=== PATIENT | female | born 1980 | race Caucasian/White ===

== ENCOUNTER 2017-09-10 10:47 | Emergency (ER) | payer OTHER ==
[2017-09-10] MEDS: NICARDipine HCL 30 MG CAPSULE PO (12:06)
[2017-09-10] MEDS: LORAZEPAM 1 MG TAB PO (12:06)
[2017-09-10] MEDS: IBUPROFEN 800 MG TAB PO (12:06)
== END 2017-09-10 13:25 | disposition home or self-care (01) ==
LOC: E/R 10:47
DX: F41.0 Panic disorder [episodic paroxysmal anxiety] (principal); Z79.82 Long term (current) use of aspirin
CPT/HCPCS: 71045; 93005; 99284-25

== ENCOUNTER 2018-03-29 09:38 | Emergency (ER) | payer OTHER ==
[2018-03-29] MEDS: SOD CHLORIDE 0.9% 500 ML IV (12:42)
[2018-03-29 12:52] LABS: ADD MAN DIFF? NO
[2018-03-29 13:03] LABS: WHITE BLOOD COUNT 10.4 10^3/ul (4.8-10.8)
[2018-03-29 13:03] LABS: ABNORMAL IP MESSAGE 1; BASOPHILS % 0.4 % (0.0-2.0); EOSINOPHILS # 0.1 10^3/ul (0.0-0.5); EOSINOPHILS % 0.6 % (0.0-7.0); HEMATOCRIT 25.9 % (37.0-47.0); HEMOGLOBIN 7.3 g/dl (12.0-16.0); LYMPHOCYTES # 1.7 10^3/ul (0.8-2.9); LYMPHOCYTES % 16.7 % (15.0-51.0); MEAN CORPUSCULAR HEMOGLOBIN 23.2 pg (29.0-33.0); MEAN CORPUSCULAR HGB CONC 28.2 g/dl (32.0-37.0); MEAN CORPUSCULAR VOLUME 82.2 fl (82.0-101.0); MONOCYTE # 0.5 10^3/ul (0.3-0.9); MONOCYTES % 5.2 % (0.0-11.0); NEUTROPHILS % 76.3 % (39.0-77.0); NUCLEATED RED BLOOD CELLS% 0.4 /100WBC (0.0-0.0); PLATELET COUNT 223 10^3/UL (140-415); RED BLOOD COUNT 3.15 10^6/ul (4.20-5.40); RED CELL DISTRIBUTION WIDTH 22.3 % (11.5-14.5)
[2018-03-29 13:06] LABS: POSITIVE DIFF @See below
[2018-03-29 13:17] LABS: PROTIME 13.3 Sec (11.9-14.9)
[2018-03-29 13:18] LABS: PARTIAL THROMBOPLASTIN TIME 24.7 Sec (23.0-35.0)
[2018-03-29 13:19] LABS: ALANINE AMINOTRANSFERASE 30 IU/L (13-69); ALBUMIN 3.4 g/dl (3.3-4.9); ALBUMIN/GLOBULIN RATIO 1.36; ALKALINE PHOSPHATASE 71 IU/L (42-121); ANION GAP 10 (5-13); ASPARTATE AMINO TRANSFERASE 27 IU/L (15-46); BILIRUBIN,INDIRECT 0.1 mg/dl (0-1.1); BILIRUBIN,TOTAL 0.1 mg/dl (0.2-1.3); BLOOD UREA NITROGEN 9 mg/dl (7-20); CALCIUM 8.2 mg/dl (8.4-10.2); CARBON DIOXIDE 23 mmol/L (21-31); CHLORIDE 103 mmol/L (97-110); CREATININE 0.47 mg/dl (0.44-1.00); Estimated GFR > 60 mL/min (>60); GLUCOSE 108 mg/dl (70-220); POTASSIUM 3.5 mmol/L (3.5-5.1); SODIUM 136 mmol/L (135-144); TOTAL PROTEIN 5.9 g/dl (6.1-8.1)
[2018-03-29] MEDS ORDERED: ONDANSETRON (ODT) 4 MG TAB ODT (13:35)
[2018-03-29 14:46] LABS: IMMEDIATE SPIN CROSSMATCH 1 1
[2018-03-29 14:49] LABS: UR BACTERIA FEW /HPF (NONE SEEN); UR MUCUS FEW /HPF (NONE SEEN); UR RBC > 182 /HPF (0-5); UR WBC 6 /HPF (0-5)
[2018-03-29] MEDS: SOD CHLORIDE 0.9% 250 ML IV (15:04)
[2018-03-29] MEDS: MEDROXYPROGESTERONE 150 MG INJ SYG IM (15:04)
[2018-03-29] MEDS: METOPROLOL 25 MG TAB PO (15:04)
[2018-03-29 15:07] LABS: ADD UMIC YES; UR ASCORBIC ACID NEGATIVE (NEGATIVE); UR BILIRUBIN (Dip) NEGATIVE (NEGATIVE); UR BLOOD (Dip) 3+ mg/dL (NEGATIVE); UR CLARITY CLEAR (CLEAR); UR COLOR YELLOW (YELLOW); UR GLUCOSE (Dip) NEGATIVE (NEGATIVE); UR KETONES (Dip) NEGATIVE (NEGATIVE); UR LEUKOCYTE ESTERASE (Dip) NEGATIVE Leu/ul (NEGATIVE); UR NITRITE (Dip) NEGATIVE (NEGATIVE); UR SPECIFIC GRAVITY (Dip) 1.015 (1.003-1.030); UR TOTAL PROTEIN (Dip) NEGATIVE (NEGATIVE); UR UROBILINOGEN (Dip) NEGATIVE (NEGATIVE)
== END 2018-03-29 18:03 | disposition home or self-care (01) ==
LOC: E/R 09:38
PROVIDERS: Pediatrics
DX: N93.8 Other specified abnormal uterine and vaginal bleeding (principal); D64.9 Anemia, unspecified; R42 Dizziness and giddiness
CPT/HCPCS: 36430; 80053; 81001; 84703; 85025; 85610; 85730; 86850; 86900; 86901; 86920; 93005; 96372; 99291-25